=== PATIENT | male | born 1955 | race Caucasian/White ===

== ENCOUNTER 2017-06-26 14:29 | Outpatient (CLI) ==
[2012-11-08 21:51] VITALS: TEMP 99.2
[2017-06-27 10:28] VITALS: BMI 16.7
== END 2017-06-26 14:30 | disposition short-term general hospital (02) ==
LOC: AMBL 14:29
PROVIDERS: ATTEND Emergency Medicine
DX: R07.89 Other chest pain (principal)

== ENCOUNTER 2017-06-27 10:23 | Emergency (ER) ==
[2017-06-27 10:28] VITALS: BP 134/80; TEMP 98.6; BMI 16.7
--- NOTE | 2017-06-27 10:39 | ED.PDOC ---
General ED Provider: Dr. BUCK FLORES Chief Complaint: Respiratory Complaint Stated Complaint: cough, flu like symp Time Seen by Physician: 10:30 (seen at [facility] 1 day ago unhappy about meds given) Mode of Arrival: Walk-In Information Source: Patient Exam Limitations: No limitations Nursing and Triage Documentation Reviewed and Agree: Yes Reviewed sepsis parameters & appropriate labs ordered?: Yes (present naida RN at all times ) System Inflammatory Response Syndrome: Not Applicable Sepsis Protocol: For patient's 13 years and over: Temp is 96.8 and below OR 101 and greater Pulse >90 BPM Resp >20/minute Acutely Altered Mental Status Are patient's symptoms suggestive of a new infection, such as: -Pneumonia -Skin, Soft Tissue -Endocarditis -UTI -Bone, Joint Infection -Implantable Device -Acute Abdominal Infection -Wound Infection -Meningitis -Blood Stream Catheter Infection -Unknown System Inflammatory Response Syndrome: Not Applicable Respiratory Complaint Exam - Respiratory Complaint/Exam Symptoms Are: Resolved Timing: Intermittent Initial Severity: Mild Current Severity: Mild Location: Nose, Throat, Chest Character: Reports: Non-productive cough Aggravating: Reports: URI Associated Signs and Symptoms: Reports: URI, Nasal congestion Related History: Reports: Similar episode History of Healthcare-Acquired Pneumonia: No Related Surgical History: Reports: None Pulmonary Embolism Risk Factors: Smoking Tuberculosis Risk Factors: Reports: Chronic Resp. Faliure Status Asthmaticus Risk Factors: Reports: None Home Oxygen Use: No Recent Stress Test: No Recent Echo/LV Function: No Current Antibiotic Use: No Current Asthma Medication Use: No Respiratory Distress: None Inadequate Respiratory Effort: No Dysphagia Present: No Stridor Present: No JVD Present: No Accessory Muscle Use: No Retractions: Not Present Diminished Breath Sounds: No Sinus Tenderness: None Grunting Respirations: No Kussmaul Respirations: No Differential Diagnoses: Pneumonia, Bronchitis, URI, Lower Resp. Infection Review of Systems - Review Of Systems Constitutional: Reports: Malaise Eyes: Reports: No symptoms Ears, Nose, Mouth, Throat: Reports: No symptoms Respiratory: Reports: Cough Cardiac: Reports: No symptoms GI: Reports: No symptoms : Reports: No symptoms Musculoskeletal: Reports: No symptoms Skin: Reports: No symptoms Neurological: Reports: No symptoms Endocrine: Reports: No symptoms Hematologic/Lymphatic: Reports: No symptoms All Other Systems: Reviewed and Negative Past Medical History - Past Medical History Previously Healthy: No Endocrine: Reports: None Cardiovascular: Reports: Hypertension, CHF Respiratory: Reports: COPD Hematological: Reports: None Gastrointestinal: Reports: None Genitourinary: Reports: None Neuro/Psych: Reports: Migraine, Anxiety, Depression Musculoskeletal: Reports: Back Pain Cancer: Reports: None - Surgical History General Surgical History: Reports: Orthopedic (hx of broken wrist), Back Surgery (Back surgery X3 Hx of broken back), Unknown - Family History Family History: Reports: Unknown - Social History Smoking Status: Current every day smoker, Heavy tobacco smoker Hx Substance Use: No Alcohol Screening: None Physical Exam - Physical Exam Appearance: Well-appearing, No pain distress, Well-nourished Eyes: ANGELES, EOMI, Conjunctiva clear ENT: Ears normal, Nose normal, Oropharynx normal Respiratory: Airway patent, Breath sounds clear, Breath sounds equal, Respirations nonlabored, Rhonchi Cardiovascular: RRR, Pulses normal, No rub, No murmur GI/: Soft, Nontender, No masses, Bowel sounds normal, No Organomegaly Musculoskeletal: Normal strength, ROM intact, No edema, No calf tenderness Skin: Warm, Dry, Normal color Neurological: Sensation intact, Motor intact, Reflexes intact, Cranial nerves intact, Alert, Oriented Psychiatric: Affect appropriate, Mood appropriate Critical Care Note - Critical Care Note Total Time (mins): 0 Course - Course Vital Signs: Temp Pulse Resp BP Pulse Ox 06/27/17 10:24 98.6 F 108 H 16 134/80 98 Departure - Departure Time of Disposition: 10:40 Disposition: HOME SELF-CARE Discharge Problem: Acute viral syndrome Instructions: Viral Syndrome (ED) Condition: Good Pt referred to PMD for follow-up: Yes IPMP verified?: Yes Additional Instructions: Please call your Family Physician as soon as possible to schedule a follow-up appointment. Allergies/Adverse Reactions: Allergies No Known Drug Allergies Adverse Reaction (Verified 06/27/17 10:33) Home Medications: Ambulatory Orders Gabapentin 300 mg PO TID 05/03/16 Methocarbamol [Robaxin] 500 mg PO BID 05/03/16 Budesonide/Formoterol Fumarate [Symbicort 160-4.5 Mcg Inhaler] 1 puff IH BID Butalbital/Aspirin/Caffeine [Fiorinal 50-325-40 mg Capsule] 1 each PO Q6H PRN Cholecalciferol (Vitamin D3) [Vitamin D] 50,000 unit PO DIRECTED 06/27/17 Diclofenac Sodium 75 mg PO BID 06/27/17 Prednisone 20 mg PO DAILYWM 06/27/17
== END 2017-06-27 10:48 | disposition home or self-care (01) ==
LOC: ED 10:23
DX: B34.9 Viral infection, unspecified (principal); R53.83 Other fatigue; F17.210 Nicotine dependence, cigarettes, uncomplicated; R07.9 Chest pain, unspecified; R09.1 Pleurisy; M54.42 Lumbago with sciatica, left side
CPT/HCPCS: 36415; 82542; 99282

== ENCOUNTER 2017-06-27 10:51 | Outpatient (CLI) ==
[2012-11-08 21:51] VITALS: TEMP 99.2
[2017-06-27 10:28] VITALS: BMI 16.7
== END 2017-06-27 10:52 | disposition home or self-care (01) ==
LOC: LAB 10:51
DX: M54.42 Lumbago with sciatica, left side (principal)
CPT/HCPCS: 36415; 82542

== ENCOUNTER 2017-09-26 14:02 | Outpatient (CLI) ==
[2012-11-08 21:51] VITALS: TEMP 99.2
== END 2017-09-26 14:03 | disposition short-term general hospital (02) ==
LOC: AMBL 14:02
PROVIDERS: ATTEND Family Medicine
DX: R06.02 Shortness of breath (principal); R07.1 Chest pain on breathing; J44.9 Chronic obstructive pulmonary disease, unspecified

== ENCOUNTER 2017-10-05 15:23 | Outpatient (CLI) ==
[2012-11-08 21:51] VITALS: TEMP 99.2
--- NOTE | 2017-10-05 16:20 | DI ---
EXAM: Lumbar spine five views HISTORY: Low back pain with sciatica. FINDINGS: Compared to 01/02/2013. Redemonstration of interbody fusion hardware extending from L3-S1. Intervening disc spacers are present. Hardware is intact. Endplate breech by the spacer at least at the L2/L3 interspaces appears grossly stable. No acute fracture is obvious. Reversal lordosis is again noted centered above the stabilization hardware. Scoliosis convex to the left. Diffuse degene rative disc disease. Generalized demineralization. Sacroiliac joints are intact and appear similar to previously seen within least mild arthropathy. IMPRESSION: Diffuse degenerative changes of the spine with hardware of the lower spine and lumbosacra l junction. Findings appear similar to that previously seen. No acute fracture is obvious.
== END 2017-10-05 15:24 | disposition home or self-care (01) ==
LOC: RAD 15:23
PROVIDERS: ATTEND Nurse Practitioner
DX: M54.42 Lumbago with sciatica, left side (principal)

== ENCOUNTER 2017-11-04 11:00 | Outpatient (RCR) ==
[2012-11-08 21:51] VITALS: TEMP 99.2
--- NOTE | 2017-11-03 11:46 | RS.OPPTEV2 ---
Date of Note: 11/02/17 Visit #: 1 Date of Evaluation: 11/02/17 Payer Source: MEDICARE Treatment Diagnosis: chronic back pain History of Condition/Mechanism of Injury:: pt suffered an injury at work approx 13 years ago and has had 3 back surgeries since then with continued LPB. Prior Level of Function.....Patient was independent with: ADL's, Self Care, Ambulation/Mobility, Community Integration/Access Functional Limitations: Sleep, Self Care, Reaching, Pushing, Pulling, Lifting, Carrying, Sitting, Standing, Bending, Squatting, Ambulation, Community Access/ Integration Current Subjective/complaints:: pt states that he has had pain for 13 years and nothing helps. States he has had multiple surgeries, PT, and pain management and nothing helps. Pt reports he is having increased difficulty with amb and pain is constant. Treatment Side (optional): N/A *Precautions: n/a Medical History Medical History: COPD, Arthritis Surgical History: Lumbar Spine (2 back surgeries) Surgical History Comments:: wrist surgery Smoking Status: Current every day smoker Diagnostic Testing/Imaging:: lumbar spine x ray diffuse degenerative changes of the spine with hardware of the lower spine and lumbosacral junction. no acute fx is obvious. Hx Home Medications: tramadol, inhaler Patient's Goals: to decrease pain Pain Assessment - Pain Description Pain Location: lumbar spine Pain Description: Radiating, Sharp, Aching Current Pain Intensity: 9 Worst Pain Intensity: 10 Other Comments regarding Pain:: pt states pain never gets lower than a 7 Functional Outcome Measure Oswestry LBP: 35 (70%) - G Codes & Severity Modifier G Codes & Modifier: mobility: walking and moving around current CL. mobility: walking and moving around goal CK Source of G Code score: oswestry low back pain scale Observation - Observation Posture: Forward Head, Rounded Shoulders, Increased Thoracic Kyphosis, Decreased Lumbar Lordosis Handedness: Right Gait - Gait Pattern General Gait Pattern Observation: Crouched Gait Gait Comments: pt amb with significant flexed posture, and only able to amb very short distances. pt attempted gait with rwx and did improve posture, however pt states "It doesn't help" General Range of Motion: BUE WFL's. BLE WFL's Muscle Strength: BUE 4/5. BLE hip flex 4-/5, knee flex/ext 4-/5, ankle DF/PF 4- /5 - ROM Lumbar Flexion: Hand reach to Mid-Thighs Sidebending to Left: Reach to Mid-thigh Sidebending to Right: Reach to Mid-thigh Lumbar Spine ROM Limitations: Soft Tissue Tightness, Muscle Weakness, Pain Comments: pt unable to tolerate lumbar ext as well as any lumbar ROM c/o severe pain with any movements. - Special Tests MANJIT Test: Positive Left, Positive Right SLR Test: Positive Left, Positive Right Seated Dural Stretch Test: Positive Left, Positive Right Palpation Palpation Findings: Tenderness, Muscle Guarding Comments:: pt unable to tolerate palpation to lumbar spine with pt withdraws to light touch. Unable to assess for trigger points. Sensation - Sensation Right Upper Extremity: Impaired Left Upper Extremity: Impaired Right Lower Extremity: Impaired Left Lower Extremity: Impaired (pt reports he has numbness and tingling B LE and hands, pt with radiating pain into LE's) Balance - Sitting Balance Static Sitting Balance: Good Dynamic Sitting Balance: Good - Standing Balance Static Standing Balance: Fair Dynamic Standing Balance: Poor - Comments Balance Assessment Comments: pt only able to tolerate standing greater than 2-3 mins. pt with flexed posture, occasional scissoring, - Treatment Modality: Electrical Stim Unattended Parameters/Method Applied: IFC x 20 mins at 6, pt unable to tolerate increased intensity. pt states estim increases LBP Treatment Area: lumbar spine Patient Position: Left Sidelying - Heat/Cryotherapy Treatment: Hot Pack Comments:: lumbar spine Interventions - Exercise/Activities/Manual Therapy Exercises/Activities: pt instructed in single knee to chest, double knee to chest, pelvic tilt, pt only able to tolerate greater than 2-3 reps. Manual Therapy: n/a HOME EXERCISE PROGRAM: pt given written HEP including pelvic tilt, single knee to chest, double knee to chest - Charges Timed Code Treatment Minutes: 43 Total Treatment Time: 58 Procedures billed for this date of service:: eval med, estim unattended, hot pack EVALUATION COMPLEXITY LEVEL EVALUATION COMPLEXITY LEVEL: HISTORY: Medium (OA, COPD, low back injury), EXAM OF BODY SYSTEMS: Medium (pain, strength, balance, posture,), CLINICAL PRESENTATION: Medium (evolving), CLINICAL DECISION MAKING: Medium Assessment Assessment: pt presents with chronic low back pain with radiating pain into BLE' s. pt withdraws to light touch and unable to tolerate palpation. pt with decreased balance as well as decreased gait safety with decline in gait safety. Patient Education: Activity Modification, Education of Plan of Care Rehab Potential: Good Short Term Goals Goal #1: pt rate pain <8/10 lumbar spine Goal to be met by: 11/16/17 Goal #2: pt amb in dept w/wo assistive device with no LOB with improved posture Goal to be met by: 11/16/17 Goal #3: pt report increased ability to perform daily household duties Goal to be met by: 11/16/17 Mcfp Goals Goal #1: pt report decreased radiating pain, rate pain <6/10 Goal to be met by: 12/03/17 Goal #2: pt able to amb from car to PT dept with no rest periods with decreased pain Goal to be met by: 12/03/17 Goal #3: pt independent with HEP Goal to be met by: 12/03/17 Goal #4: pt able to amb/perform standing activities x 10 mins Goal to be met by: 12/03/17 Plan - Treatment to be Provided Procedures: Therapeutic Exercises, Therapeutic Activity, Manual Therapy, Massage , Patient Education Modalities: Electrical Stimulation, Ultrasound/Phonophoresis, Class IV Laser, Cryotherapy, Hot Packs, Mechanical Traction - Treatment Plan Frequency: 2 X week Duration: 4 weeks ORDER # VISITS AND/OR THROUGH DATE: 12/03/17 - Treatment Code (1) Lumbar pain with radiation down both legs Code(s): M54.5 - LOW BACK PAIN (2) General weakness Code(s): R53.1 - WEAKNESS (3) Impairment of balance Code(s): R26.89 - OTHER ABNORMALITIES OF GAIT AND MOBILITY
--- NOTE | 2017-11-04 12:11 | RS.OPPTDN ---
Subjective Date of Note: 11/04/17 Visit #: 2 Date of Evaluation: 11/02/17 Payer Source: MEDICARE Treatment Diagnosis: chronic back pain Current Subjective/complaints:: Patient says he is not feeling any better from treatment at [facility]. Reports taking Tramadol ~ 2 hours ago and just takes some of his L LE pain away. Rates pain 8/10 now. States often he has had pain for 13 years and "none of this" treatment/surgery helped. C/o LE pain that is unchanged from surgeries. Reports referring MD will refer him to a neurosurgeon in [place] once one agrees to take Mr. Olivier. *Precautions: n/a Pain Assessment - Pain Description Pain Location: 8/10 Pain Description: Radiating, Sharp, Throbbing Pain Description: "lightning bolt" - Treatment Modality: Electrical Stim Unattended Parameters/Method Applied: IFC @ 7 ma x 20 mins to lumbar paraspinals 4 small pads Patient Position: Right Sidelying - Heat/Cryotherapy Treatment: Hot Pack Interventions - Exercise/Activities/Manual Therapy Exercises/Activities: Patient receives gentle SKTC, short range piriformis, full fig 4, hamstring only nael x 2 reps each leg. Patient begins 4 reps of pillow squeezes and needs to stop due to having "lightning pain" down the L LE. Patient began education of diagnosis and body mechanics as well as POC. Total minutes of Exercise: 8 Manual Therapy: n/a HOME EXERCISE PROGRAM: pt given written HEP including pelvic tilt, single knee to chest, double knee to chest - Charges Timed Code Treatment Minutes: 15 Total Treatment Time: 35 Procedures billed for this date of service:: hp, estim (un), ex Assessment: Patient admits 8/10 pain with pain meds while laying sidelying in preps for treatment. He is unable to nael estim at low level as well as gentle stretches/exercise. He begins to have L radicular symptoms during activity as stated in exercise. He amb with forward flexed gait, shortened stride, and unable to nael light electrode placement during modalities upper back, but no hypersensitivity to the lower lumbar region. Patient Education: Education of diagnosis, Body/Joint mechanics, Home Exercise Program, Education of Plan of Care Patient demonstrates compliance with HEP?: No (Patient says hurts too bad) Short Term Goals Goal #1: pt rate pain <8/10 lumbar spine Goal to be met by: 11/16/17 Goal #2: pt amb in dept w/wo assistive device with no LOB with improved posture Goal to be met by: 11/16/17 Goal #3: pt report increased ability to perform daily household duties Goal to be met by: 11/16/17 Retirement Goals Goal #1: pt report decreased radiating pain, rate pain <6/10 Goal to be met by: 12/03/17 Goal #2: pt able to amb from car to PT dept with no rest periods with decreased pain Goal to be met by: 12/03/17 Goal #3: pt independent with HEP Goal to be met by: 12/03/17 Goal #4: pt able to amb/perform standing activities x 10 mins Goal to be met by: 12/03/17 Plan PLAN OF CARE EXPIRES ON:: 12/03/17 ORDER # VISITS AND/OR THROUGH DATE: 12/03/17 PLAN: Patient to attempt next week, then contact MD if no progress ensues.
--- NOTE | 2017-11-09 11:58 | RS.CXNS ---
Date of scheduled appointment: 11/09/17 Type: No Show
--- NOTE | 2017-11-11 15:30 | RS.CXNS ---
Date of scheduled appointment: 11/11/17 Type: No Show
--- NOTE | 2017-11-17 08:56 | RS.QUICKDC ---
Discharge from PT Date of Discharge: 11/17/17 Number of Visits: 2 Reason for Discharge: Patient attended eval and 1 Rx only, no showing further visits. Chart was held in order to give pt opportunity to reschedule. See eval and daily note for specific info.
== END 2017-11-27 23:59 ==
PROVIDERS: ATTEND Nurse Practitioner
DX: M54.5 Low back pain (principal); G89.29 Other chronic pain; R53.1 Weakness; R26.89 Other abnormalities of gait and mobility

== ENCOUNTER 2017-11-26 21:18 | Emergency (ER) | payer OTHER ==
[2017-11-26 21:24] VITALS: BP 112/76; TEMP 99.7; BMI 17.2
[2017-11-26] MEDS ORDERED: DILAUDID IM STA (21:29)
[2017-11-26] MEDS ORDERED: PHENERGAN 25 MG/ML VIAL IM STA (21:29)
[2017-11-26] MEDS ORDERED: TORADOL IM STA (21:29)
--- NOTE | 2017-11-26 21:32 | ED.PDOC ---
General ED Provider: Dr. DERRICK MILNER-ER Chief Complaint: Headache Stated Complaint: gita got a migraine--just like the ones i usually have Time Seen by Physician: 21:30 Mode of Arrival: Walk-In Information Source: Patient Exam Limitations: No limitations Primary Care Provider: ANIL SHELBY Nursing and Triage Documentation Reviewed and Agree: Yes Does patient meet sepsis criteria?: No System Inflammatory Response Syndrome: Not Applicable Sepsis Protocol: For patient's 13 years and over: Temp is 96.8 and below OR 101 and greater Pulse >90 BPM Resp >20/minute Acutely Altered Mental Status Are patient's symptoms suggestive of a new infection, such as: -Pneumonia -Skin, Soft Tissue -Endocarditis -UTI -Bone, Joint Infection -Implantable Device -Acute Abdominal Infection -Wound Infection -Meningitis -Blood Stream Catheter Infection -Unknown Neurological Complaint Exam - Headache Complaint/Exam Onset: Gradual Duration: several hours Symptoms Are: Still present Timing: Constant Episodes Lasting: Hours Worst Headache Ever: No Initial Severity: Mild Current Severity: Moderate Location: Diffuse Character: Reports: Dull, Throbbing, Typical headache, Migraine Aggravating: Reports: Bright lights Associated Signs and Symptoms: Reports: Nausea, Vomiting. Denies: Dizziness, Seizure Related History: Reports: Similar episode (just like usual migraine vaughn) Related Surgical History: Reports: None SDH Risk Factors: Reports: Male Temporal Arteritis Risk Factors: Reports: Normal Head CT Within Last 12 Months: Yes Fundoscopic Exam: Present: Normal Findings Papilledema Present: No Temporal Artery Tenderness: Present: None Sinus Tenderness: Present: None TMJ Tenderness: Present: None Glascow Coma Scale (see protocol): 15 Meningeal Signs Positive: No Pain on Passive Flexion-Positive Kernig's: No ROM Limited In: No Limitiations Focal Weakness: Present: None Focal Sensory Loss: Present: None Gait: Normal Nystagmus Present: No Gag Reflex Present: No [id number]: Normal Findings Romberg Test Positive: Yes Babinski Sign: Negative Right, Negative Left Heel to Toe Normal: Yes Differential Diagnoses: Migraine Review of Systems - Review Of Systems Constitutional: Reports: No symptoms Eyes: Reports: No symptoms Ears, Nose, Mouth, Throat: Reports: No symptoms Respiratory: Reports: No symptoms Cardiac: Reports: No symptoms GI: Reports: Nausea, Vomiting : Reports: No symptoms Musculoskeletal: Reports: No symptoms Skin: Reports: No symptoms Neurological: Reports: Headache Endocrine: Reports: No symptoms Hematologic/Lymphatic: Reports: No symptoms All Other Systems: Reviewed and Negative Past Medical History - Past Medical History Previously Healthy: No Endocrine: Reports: None Cardiovascular: Reports: Hypertension, CHF Respiratory: Reports: COPD Hematological: Reports: None Gastrointestinal: Reports: None Genitourinary: Reports: None Neuro/Psych: Reports: Migraine, Anxiety, Depression Musculoskeletal: Reports: Back Pain Cancer: Reports: None - Surgical History General Surgical History: Reports: Orthopedic (hx of broken wrist), Back Surgery (Back surgery X3 Hx of broken back), Unknown - Family History Family History: Reports: Unknown - Social History Smoking Status: Current every day smoker, Heavy tobacco smoker Hx Substance Use: No Alcohol Screening: None - Immunizations Tetanus Shot up to Date: Yes Physical Exam - Physical Exam Appearance: Well-appearing Pain Distress: Moderate Eyes: ANGELES, EOMI, Conjunctiva clear ENT: Ears normal, Nose normal, Oropharynx normal Neck: Supple Respiratory: Airway patent, Breath sounds clear, Breath sounds equal, Respirations nonlabored Cardiovascular: RRR, Pulses normal, No rub, No murmur GI/: Soft Musculoskeletal: Normal strength, ROM intact, No edema, No calf tenderness Skin: Warm, Dry, Normal color Neurological: Sensation intact, Motor intact, Reflexes intact, Cranial nerves intact, Alert, Oriented Psychiatric: Affect appropriate, Mood appropriate Re-Evaluation - Re-Evaluation Time of Re-Evaluation: 21:33 Status: Improved Vital Signs Stable: Yes Pain Level: 1 Appearance: NAD Lungs: Clear Skin: Warm and Dry Neuro: Alert and Oriented X3 CV: RRR Critical Care Note - Critical Care Note Total Time (mins): 0 Course - Course Orders, Labs, Meds: Orders Category Date Time Status Hydromorphone HCl [Dilaudid] MEDS 11/26/17 21:29 Discontinued 1 mg IM ONCE STA Ketorolac Tromethamine [Toradol] MEDS 11/26/17 21:29 Discontinued 60 mg IM ONCE STA Promethazine HCl [Phenergan 25 mg/ml Vial] MEDS 11/26/17 21:29 Discontinued 25 mg IM ONCE STA Medications Discontinued Medications Generic Name Dose Route Start Last Admin Trade Name Freq PRN Reason Stop Dose Admin Hydromorphone HCl 1 mg 11/26/17 21:29 11/26/17 21:44 Dilaudid IM 11/26/17 21:30 1 mg ONCE STA Administration Ketorolac Tromethamine 60 mg 11/26/17 21:29 11/26/17 21:42 Toradol IM 11/26/17 21:30 60 mg ONCE STA Administration Promethazine HCl 25 mg 11/26/17 21:29 11/26/17 21:43 Phenergan 25 Mg/Ml Vial IM 11/26/17 21:30 25 mg ONCE STA Administration Vital Signs: Temp Pulse Resp BP Pulse Ox 11/26/17 21:19 99.7 F H 110 H 20 112/76 96 Departure - Departure Time of Disposition: 21:33 Disposition: HOME SELF-CARE Discharge Problem: Migraine headache Qualifiers: Migraine type: without aura Status migrainosus presence: without status migrainosus Intractability: not intractable Qualified Code(s): G43.009 - Migraine without aura, not intractable, without status migrainosus Instructions: Migraine Headache (ED) Condition: Good Pt referred to PMD for follow-up: No IPMP verified?: No Additional Instructions: f/u with pcp Allergies/Adverse Reactions: Allergies No Known Drug Allergies Adverse Reaction (Verified 11/26/17 21:26) Home Medications: Ambulatory Orders Gabapentin 300 mg PO TID 05/03/16 Budesonide/Formoterol Fumarate [Symbicort 160-4.5 Mcg Inhaler] 1 puff IH BID Acetaminophen with Codeine [Tylenol #3 Tab] 1 tab PO Q4-6H PRN 11/26/17 Disposition Discussed With: Patient, Family
== END 2017-11-26 22:10 | disposition home or self-care (01) ==
LOC: ED 21:18
DX: G43.009 Migraine without aura, not intractable, without status migrainosus (principal); F17.210 Nicotine dependence, cigarettes, uncomplicated
CPT/HCPCS: 96372; 99282

== ENCOUNTER 2017-12-07 11:13 | Outpatient (CLI) | payer OTHER ==
[2012-11-08 21:51] VITALS: TEMP 99.2
== END 2017-12-07 11:27 | disposition short-term general hospital (02) ==
LOC: AMBL 11:13
PROVIDERS: ATTEND Emergency Medicine
DX: I63.9 Cerebral infarction, unspecified (principal)

== ENCOUNTER 2018-03-11 11:14 | Outpatient (CLI) | payer OTHER ==
[2012-11-08 21:51] VITALS: TEMP 99.2
== END 2018-03-11 11:15 | disposition home or self-care (01) ==
LOC: LAB 11:14
PROVIDERS: ATTEND Nurse Practitioner
DX: E53.8 Deficiency of other specified B group vitamins (principal); E55.9 Vitamin D deficiency, unspecified; I63.9 Cerebral infarction, unspecified; M54.9 Dorsalgia, unspecified
CPT/HCPCS: 36415; 80053; 80306; 82306; 82607; 85025

== ENCOUNTER 2018-03-28 13:00 | Outpatient (RCR) ==
[2012-11-08 21:51] VITALS: TEMP 99.2
--- NOTE | 2018-03-09 16:05 | RS.OTEVAL ---
Subjective Date of Note: 03/09/18 Visit #: 1 Date of Evaluation: 03/09/18 Payer Source: MEDICARE Surgery Performed?: No Treatment Diagnosis: CVA -Left middle Cerebral A. [phone], [phone] Treatment Side (optional): N/A *Precautions: n/a Prior Level of Function.....Patient was independent with: ADL's, Self Care, Work /Vocation, Caregiving, Ambulation/Mobility, Community Integration/Access History of Condition/Mechanism of Injury: Pt had a CVA at home 3 months ago. Pt went to [facility]. Pt reports he has not made any improvements. Level of Function: Pt is able to walk with a hemiwalker with CGA and belt. Pt becomes tired. Pt is independent with dressing. Pt is moderate assistance for bathing. Pt is moderate assistanc for shaving. Functional Limitations: Sleep, Self Care, ADL's, Reaching, Pushing, Pulling, Lifting, Carrying, Standing, Bending, Squatting, Community Access/Integration Current Complaints/Gains: Pt reports his therapy at the group home has not helped him much. Medical History Medical History: Hypertension, CVA/TIA, COPD, Arthritis Medical History Comments:: CVA, HTN, COPD, Fell and fractured his back and has hardware in his back. Right radial fracture with surgery of pins and a plate. Pt fractured his Left wrist as well. Surgical History: Lumbar Spine (2 back surgeries) Surgical History Comments:: wrist surgery Smoking Status: Current every day smoker Diagnostic Testing/Imaging:: lumbar spine x ray diffuse degenerative changes of the spine with hardware of the lower spine and lumbosacral junction. no acute fx is obvious. Hx Home Medications: tramadol, inhaler Patient's Goals: To be able to go fishing and feed himself with the RUE. Pain Assessment - Pain Description Pain Description: Burning, Tightness, Radiating, Sharp, Throbbing, Aching Pain Location: Back, Right shoulder Pain Description: sharp pain Current Pain Intensity: 8 Worst Pain Intensity: 10 Functional Outcome Measures UE Functional Index: 93 - G Codes & Severity Modifier G Codes: Carry, moving, and handling current is CM at 93% impaired. Goal is CI. Source of G Code score: Carry, moving, and handling. Observation - Observation Posture: Forward Head Handedness: Right Additional Comments: Pt is very limited in functional use of the RUE hand and arm due to tone, weakness, and limited coordination. Shoulder ROM: Left WFL's Shoulder Muscle Strength: Left WFL's - Right Shoulder ROM Right Shoulder Flexion: 20 Right Shoulder Extension: 60 Right Shoulder Abduction: 20 (Pt has some mild subluxation) Right Shoulder Internal Rotation: 20 Right Shoulder External Rotation: 0 Right Shoulder ROM Limitations: Soft Tissue Tightness, Muscle Weakness, Muscle Tone, Pain - Left Shoulder Strength Left Shoulder Flexion: 4+ Good + Left Shoulder Extension: 4+ Good + Left Shoulder Abduction: 4+ Good + Left Shoulder Adduction: 4+ Good + Left Shoulder External Rotation: 4+ Good + Left Shoulder Internal Rotation: 4+ Good + - Right Shoulder Strength Right Shoulder Flexion: 2+ Poor+ Right Shoulder Extension: 4- Good- Right Shoulder Abduction: 3- Fair- Right Shoulder External Rotation: 2 Poor Right Shoulder Internal Rotation: 2 Poor - Right Elbow ROM Right Elbow Extension: 147 Right Elbow Flexion: 147 Right Elbow Supination: 45 Right Elbow Pronation: 30 Right Elbow ROM Limitations: Soft Tissue Tightness, Muscle Weakness, Pain - Left Elbow Strength Left Elbow Extension: 4+ Good + Left Elbow Flexion: 4+ Good + Left Forearm Pronation: 4+ Good + Left Forearm Supination: 4+ Good + - Right Elbow Strength Right Elbow Extension: 4 Good Right Elbow Flexion: 4 Good Right Forearm Pronation: 3- Fair- Right Forearm Supination: 3- Fair- Sensation Right Upper Extremity: Intact/Normal Left Upper Extremity: Intact/Normal Sensation Description: Within Normal Limits Interventions - Exercise/Activities Exercise/Activities/Manual Therapy: Shoulder shrugs, reaching with RUE, Shoulder and clock exercises, reaching across midline. - Objective Findings Objective Findings:: Pt has weakness of RUE shoulder and impaired coordination of the RUE. Pt had limited use of the RUE due to his RUE wrist and and hand. Pt has tone of the right wrist/ hand and wrist extension. - Charges Timed Code Treatment Minutes: 60 Total Treatment Time: 60 Procedures billed for this date of service:: OT evaluation, EX EVALUATION COMPLEXITY LEVEL: HISTORY: Medium, EXAM OF BODY SYSTEMS: Medium, CLINICAL DECISION MAKING: Medium Assessment Assessment: Pt has RUE weakness, impaired coordination, increased tone of the Right wrist, hand. Pt is not able to write with a pen with the RUE due to impaired coordination. Pt is able to dress himself. Patient Education: Education of diagnosis, Body/Joint mechanics, Home Exercise Program, Education of Plan of Care Rehab Potential: Good Problems/Comments: Cannot do buttons, Pt cannot comb his hair, pt needs assistance with a bath, pt needs assistance with ambulation, Pt cannot hold a pen with the RUE nor write his name. Short Term Goals Goal #1: Pt to increase RUE wrist extension to 50 deg. Goal to be met by: 03/23/18 Goal #2: to increase coordination of RUE pincer grasp to pickle solution maker a clemens & put in jar Goal to be met by: 03/23/18 Goal #3: to increase RUE shoulder strengthening to 4-/5. Goal to be met by: 03/23/18 Goal #4: Pt to increase table assembler strength to 25#. Goal to be met by: 03/23/18 White Washer Goals Goal #1: Pt to increase RUE wrist extension to 65 deg. Goal to be met by: 04/20/18 Goal #2: to increase fine motor pincer grasp to complete green clothespin x 20 RUE Goal to be met by: 04/20/18 Goal #3: to increase RUE shoulder strengthening to 4+/5. Goal to be met by: 04/20/18 Goal #4: Pt to increase table assembler strength to 55#. Goal to be met by: 04/20/18 Plan - Treatment to be provided Procedures: Therapeutic Exercises, Therapeutic Activity, Neuromuscular Rehab, Manual Therapy, Patient Education Modalities: Electrical Stimulation, Ultrasound/Phonophoresis, Cryotherapy, Hot Packs - Treatment Plan Frequency: 2-3X /week Duration: 6 weeks ORDER # VISITS AND/OR THROUGH DATE: 04/20/18 - Treatment Code (1) Pain in right shoulder Code(s): M25.511 - PAIN IN RIGHT SHOULDER Comments: M25.511 RUE shoulder pain (2) Subluxation of right shoulder joint Code(s): S43.001A - UNSPECIFIED SUBLUXATION OF RIGHT SHOULDER JOINT, INIT ENCNTR Comments: S43.0 Shoulder subluxation (3) Pain in right wrist Code(s): M25.531 - PAIN IN RIGHT WRIST Comments: M25.5 Right wrist pain (4) Muscle weakness (generalized) Code(s): M62.81 - MUSCLE WEAKNESS (GENERALIZED)
--- NOTE | 2018-03-09 16:08 | RS.OPPTEV2 ---
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 pt then spent 3 months in residential for rehab. Prior Level of Function.....Patient was independent with: ADL's, Self Care, Ambulation/Mobility, Community Integration/Access Functional Limitations: Self Care, ADL's, Reaching, Pushing, Pulling, Lifting, Carrying, Sitting, Standing, Bending, Squatting, Ambulation, Community Access/ Integration Current Subjective/complaints:: pt states his main concern is getting his R UE back as well as walking better. He states that he has pain in L lumbar area which began prior to CVA however is worse since CVA. Treatment Side (optional): Right *Precautions: n/a Medical History Medical History: Hypertension, CVA/TIA, COPD, Arthritis Surgical History: Lumbar Spine (2 back surgeries) Surgical History Comments:: wrist surgery Smoking Status: Former smoker Hx Home Medications: tylenol 3, ventolin, albuterol Patient's Goals: get use of RUE and be able to walk better. Pain Assessment - Pain Description Pain Location: L lumbar area Pain Description: Aching Current Pain Intensity: 8/10 Functional Outcome Measure Tinetti: 6 (80%) - G Codes & Severity Modifier G Codes & Modifier: mobility walking and moving around: current CM. mobility walking and moving around: goal CL Source of G Code score: tinetti score Observation - Observation Inspection: pt presents with subluxation to R shld. Posture: Forward Head, Rounded Shoulders, Increased Thoracic Kyphosis, Decreased Lumbar Lordosis Handedness: Right Gait - Gait Pattern General Gait Pattern Observation: Narrow Based Gait, Ataxic Gait, Crouched Gait , Decrease Stride Lngth (R), Decrease Stride Lngth (L), Lateral Trunk Lean Gait Comments: pt amb with hemiwalker 50ft with min to cga x 1 with assist with placement of hemiwalker. pt amb 50 ft and had to bring w/c to pt because he was exhausted. General Range of Motion: LUE and LLE WFL's. RUE PROM WFL's. RLE WFL's Muscle Strength: LUE and LLE 5/5. RUE shld subluxed flex 2-/5, elbow flex/ext 3 -/5, decreased emergency services dispatcher strength and finger ext. RLE hip flex 3+/5, knee flex/ext 3 -/5, ankle DF/PF 1/5 Palpation Palpation Findings: Tenderness, Muscle Guarding Comments:: tenderness and muscle guarding to L lumbar area Sensation - Sensation Right Upper Extremity: Intact/Normal Left Upper Extremity: Intact/Normal Right Lower Extremity: Intact/Normal Left Lower Extremity: Intact/Normal Balance - Sitting Balance Static Sitting Balance: Good Dynamic Sitting Balance: Fair - Standing Balance Static Standing Balance: Poor Dynamic Standing Balance: Poor - Comments Balance Assessment Comments: pt dyn stand balance poor. Tinetti balance score 6/ 28. Gait speed: 0.1 m/s with min assist. Interventions - Exercise/Activities/Manual Therapy Exercises/Activities: pt performed isometric hip add x 5, seated LAQ, hip flex x 5 reps with verbal cues. Received hamstring stretch BLE, lower trunk rotation stretch. Manual Therapy: n/a HOME EXERCISE PROGRAM: pt given written HEP including isometric hip add, seated hip flex, seated quad sets, hamstring stretches, lower trunk rotation stretch - Charges Timed Code Treatment Minutes: 48 Total Treatment Time: 54 Procedures billed for this date of service:: eval med EVALUATION COMPLEXITY LEVEL EVALUATION COMPLEXITY LEVEL: HISTORY: Medium (CVA, COPD,HTN, OA ), EXAM OF BODY SYSTEMS: Medium (balance, strength, posture, pain, coordination, endurance), CLINICAL PRESENTATION: Medium (evolving), CLINICAL DECISION MAKING: Medium Assessment Assessment: pt presents with decreased strength, balance, endurance, gait ability s/p CVA. Feel pt would benefit from skilled PT for therex for LE strengthening, balance as well as gait training. Patient Education: Home Exercise Program, Education of Plan of Care Rehab Potential: Good Short Term Goals Goal #1: pt RLE strength 3+ to 4-/5 Goal to be met by: 03/25/18 Goal #2: pt amb in dept w hemiwx with improved posture with CGA no LOB Goal to be met by: 03/25/18 Goal #3: Improve dyn stand balance as noted by tinetti score 28 Goal to be met by: 03/25/18 Goal #4: pt independent with initial HEP Goal to be met by: 03/25/18 Boy'S Adviser Goals Goal #1: pt with decreased risk of falls as noted by tinetti score >19/28 Goal to be met by: 04/15/18 Goal #2: pt able to amb from car to PT dept with hemiwalker with SBA with no LOB Goal to be met by: 04/15/18 Goal #3: pt report increased functional mobility in the home with no reports of fall Goal to be met by: 04/15/18 Goal #4: Gait speed 0.4m/s to be considered limited community ambulator. Goal to be met by: 04/15/18 Plan - Treatment to be Provided Procedures: Therapeutic Exercises, Therapeutic Activity, Gait Training, Neuromuscular Rehab, Patient Education Modalities: Cryotherapy, Hot Packs - Treatment Plan Frequency: 2-3x a week Duration: 6 weeks ORDER # VISITS AND/OR THROUGH DATE: 04/15/18 - Treatment Code (1) Hemiplegia, dominant side S/P CVA (cerebrovascular accident) Code(s): I69.359 - HEMIPLGA FOLLOWING CEREBRAL INFARCTION AFFECTING UNSP SIDE (2) Cerebral infarction due to thrombosis of left middle cerebral artery Code(s): I63.312 - CEREBRAL INFRC DUE TO THOMBOS OF LEFT MIDDLE CEREBRAL ARTERY (3) Foot drop, right Code(s): M21.371 - FOOT DROP, RIGHT FOOT (4) Impairment of balance Code(s): R26.89 - OTHER ABNORMALITIES OF GAIT AND MOBILITY
--- NOTE | 2018-03-14 10:22 | RS.OPPTDN ---
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 *Precautions: n/a Pain Assessment - Pain Description Pain Location: back pain Pain Description: Aching, Chronic Pain Description: aching before and after CVA Current Pain Intensity: not rated Interventions - Exercise/Activities/Manual Therapy Exercises/Activities: 45 mins. total of R LE stetches /strengthening in all directions,including ankle DF/PF with facilitation ,heelslides,SAQ,SLR,hip abd/ adduction,bridging.Gait training withn tristan-walker and CGA of 1,then added 1.5 # to R LE to reduce ataxia. Total minutes of Exercise: 45 Manual Therapy: n/a Total minutes of Manual Therapy: 0 HOME EXERCISE PROGRAM: pt given written HEP including isometric hip add, seated hip flex, seated quad sets, hamstring stretches, lower trunk rotation stretch - Charges Timed Code Treatment Minutes: 45 Total Treatment Time: 45 Procedures billed for this date of service:: ex 2,gait 1 Assessment: Patient has improved R ankle DF with facilitation to the R anterior tib and by quick stretch into PF.The R hip weakness is noted when doing heelslides or bridging,the R hip externally rotates.His gait is ataxic ,and is improved by adding light resistance at the ankle ,and the base of support improves.He is motivated ,but also impulsive at times,has fair safety awareness. Patient Education: Education of diagnosis, Body/Joint mechanics, Home Exercise Program, Home Safety, Activity Modification, Education of Plan of Care Patient demonstrates compliance with HEP?: Yes Short Term Goals Goal #1: pt RLE strength 3+ to 4-/5 Goal to be met by: 03/25/18 Progress towards Goal:: Progressing Goal #2: pt amb in dept w hemiwx with improved posture with CGA no LOB Goal to be met by: 03/25/18 Progress towards Goal:: Progressing Goal #3: Improve dyn stand balance as noted by tinetti score 15/28 Goal to be met by: 03/25/18 Goal #4: pt independent with initial HEP Goal to be met by: 03/25/18 Dry Heat Room Attendant Goals Goal #1: pt with decreased risk of falls as noted by tinetti score >19/28 Goal to be met by: 04/15/18 Goal #2: pt able to amb from car to PT dept with hemiwalker with SBA with no LOB Goal to be met by: 04/15/18 Goal #3: pt report increased functional mobility in the home with no reports of fall Goal to be met by: 04/15/18 Goal #4: Gait speed 0.4m/s to be considered limited community ambulator. Goal to be met by: 04/15/18 Plan Dates of Snf Goals: 04/15/18 Expiration date of current Insurance Approval:: NA PLAN: Continue PT to increased the R LE/trunk strength ,for safer ADL's.
--- NOTE | 2018-03-14 14:24 | RS.OTDNOTE ---
Subjective Date of Note: 03/14/18 Visit #: 2 Number of visits approved by Insurance: N/A Date of Evaluation: 03/09/18 Payer Source: MEDICARE Treatment Diagnosis: CVA -Left middle Cerebral A. [phone], [phone] *Precautions: n/a Current Complaints/Gains: Pt states increased UE/cervical pain. states he slept wrong and has had increased pain x 3 days. States compliance with shoulder flexion only supine in bed with RAMONA-A/AROM. Pain Assessment - Pain Description Pain Description: Burning, Tightness, Radiating, Sharp, Throbbing, Aching Pain Location: Back, Right shoulder Pain Description: sharp pain Current Pain Intensity: 3 Worst Pain Intensity: 8 Other comments regarding pain:: Increased c/o pain with cervical AROM Modalities - Treatment Modality: Ultrasound Parameters/Method Applied: 1.5w/cm2 to (R) traps Patient Position: Sitting - Hot Pack/Cryotherapy Treatment: Hot Pack, Cryotherapy Interventions - Exercise/Activities Exercise/Activities/Manual Therapy: Pt ed and performed shoulder shrugs/ retraction, AROM reaching/grasping with RUE, shoulder and clock exercises, reaching across midline/PNF patterns, table-top AROM, weight bearing of UE, and tolerated manual therapy/trigger point therapy to forearms and shoulder/traps. Pt performed AROM/stretching of cervial side to side and chin tucks during US tx. Restor also performed x 5 mins with pt ed for home use. - Other Treatment/Services Treatment Details: Pt ed for HEP and forced use activities along with proper UE positioning - Objective Findings Objective Findings:: Pt has weakness of RUE shoulder and impaired coordination of the RUE. Pt had limited use of the RUE due to his RUE wrist and and hand. Pt has tone of the right wrist/ hand and wrist extension. - Charges Timed Code Treatment Minutes: US HP MT NMR Total Treatment Time: 55 Procedures billed for this date of service:: 62 Assessment Patient Education: Education of diagnosis, Body/Joint mechanics, Home Exercise Program, Home Safety, Activity Modification, Education of Plan of Care Patient demonstrates compliance with HEP?: Yes Short Term Goals Goal #1: Pt to increase RUE wrist extension to 50 deg. Goal to be met by: 03/23/18 Progress towards goal: Progressing Goal #2: to increase coordination of RUE pincer grasp to picker tender a clemens & put in jar Goal to be met by: 03/23/18 Progress towards goal: Progressing Goal #3: to increase RUE shoulder strengthening to 4-/5. Goal to be met by: 03/23/18 Progress towards goal: Progressing Goal #4: Pt to increase automotive parts salesperson strength to 25#. Goal to be met by: 03/23/18 Progress towards goal: Progressing Tetryl Boiling Tub Operator Goals Goal #1: Pt to increase RUE wrist extension to 65 deg. Goal to be met by: 04/20/18 Progress towards goal: Progressing Goal #2: to increase fine motor pincer grasp to complete green clothespin x 20 RUE Goal to be met by: 04/20/18 Progress towards goal: Progressing Goal #3: to increase RUE shoulder strengthening to 4+/5. Goal to be met by: 04/20/18 Progress towards goal: Progressing Goal #4: Pt to increase automotive parts salesperson strength to 55#. Goal to be met by: 04/20/18 Progress towards goal: Progressing Plan Dates of Alf Goals: 04/20/18 Expiration date of current Insurance Approval:: NA PLAN: Cont per POC to max UE fx with decreased c/o pain
--- NOTE | 2018-03-17 14:32 | RS.OPPTDN ---
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 *Precautions: n/a Interventions - Exercise/Activities/Manual Therapy Exercises/Activities: 50 mins. total ,beginning on leg press using both LE's @ 90 # ,08/07,then 15# and 30 # for R LE only,2/ each.Isometric hip abd/ adduction with small therapy ball.Gait training with tristan-walker and gait belt, using 3 point gait technique. Total minutes of Exercise: 50 Manual Therapy: n/a Total minutes of Manual Therapy: 0 HOME EXERCISE PROGRAM: pt given written HEP including isometric hip add, seated hip flex, seated quad sets, hamstring stretches, lower trunk rotation stretch - Charges Timed Code Treatment Minutes: 50 Total Treatment Time: 55 Procedures billed for this date of service:: ex,gt,ther. act. Assessment: Patient requires several verbal cues for proper step sequencing when using the tristan-walker initially ,but improved as the gait session progressed.He has ataxia in the R LE,and the coordination improves with light weight on the R ankle.He is high risk for falls if unassisted ,is impulsive at times ,decreased safety awareness for stand to sit. Patient Education: Education of diagnosis, Body/Joint mechanics, Home Exercise Program, Home Safety, Activity Modification, Education of Plan of Care Patient demonstrates compliance with HEP?: Yes Short Term Goals Goal #1: pt RLE strength 3+ to 4-/5 Goal to be met by: 03/25/18 Progress towards Goal:: Progressing Goal #2: pt amb in dept w hemiwx with improved posture with CGA no LOB Goal to be met by: 03/25/18 Progress towards Goal:: No Change Goal #3: Improve dyn stand balance as noted by tinetti score 15/28 Goal to be met by: 03/25/18 Goal #4: pt independent with initial HEP Goal to be met by: 03/25/18 Longterm Goals Goal #1: pt with decreased risk of falls as noted by tinetti score >19/28 Goal to be met by: 04/15/18 Goal #2: pt able to amb from car to PT dept with hemiwalker with SBA with no LOB Goal to be met by: 04/15/18 Goal #3: pt report increased functional mobility in the home with no reports of fall Goal to be met by: 04/15/18 (fell yesterday) Goal #4: Gait speed 0.4m/s to be considered limited community ambulator. Goal to be met by: 04/15/18 Plan Dates of Full Stack Engineer Goals: 04/15/18 Expiration date of current Insurance Approval:: NA PLAN: Continue PT to increase strength in the R LE,improve coordination for safer mobility.
--- NOTE | 2018-03-17 14:55 | RS.OTCNOTE ---
OT Case Note Date of Note: 03/17/18 Title: Pt ed Note: Pt and CG states pt fell at home the previous night. Pt with increased c/ o pain/swelling in digits 4-5 noted. Pt ed on ER visit, contacting MD, ice pack application and positioning of UE. OTR contacted per phone. Pt on hold this date and rescheduled to tomorrow, 03/18. Number of visits approved by Insurance: NA Expiration date of current Insurance Approval:: NA
--- NOTE | 2018-03-22 08:32 | RS.OTDNOTE ---
Subjective Date of Note: 03/18/18 Visit #: 3 Number of visits approved by Insurance: NA Date of Evaluation: 03/09/18 Payer Source: MEDICARE Treatment Diagnosis: CVA -Left middle Cerebral A. [phone], [phone] *Precautions: n/a Current Complaints/Gains: Pt voices and demo increased cervical AROM and has decreased c/o pain. States he has been trying to utilize his (R) hand more during fx tasks. States supine A/AROM in the mornings and evenings. Pain Assessment - Pain Description Pain Description: Burning, Tightness, Radiating, Sharp, Throbbing, Aching Pain Location: Back, Right shoulder Pain Description: sharp pain Current Pain Intensity: 3 Modalities - Treatment Modality: Electrical Stim Attended Parameters/Method Applied: Dorsal forearm for wrist/digit extension. Mirrow therapy performed along with therapist ABDIAS CUEVAS. Patient Position: Sitting - Hot Pack/Cryotherapy Treatment: Hot Pack, Cryotherapy Interventions - Exercise/Activities Exercise/Activities/Manual Therapy: Pt ed and performed shoulder shrugs/ retraction, AROM reaching/grasping with RUE, shoulder and clock exercises, reaching across midline/PNF patterns, table-top AROM, weight bearing of UE, and tolerated manual therapy/trigger point therapy to forearms and shoulder/traps. Pt performed AROM/cervical AROM. Mirror therapy, and use of B UE lacy ed performed. Restor also performed x 5 mins with pt ed for home use. - Objective Findings Objective Findings:: Pt has weakness of RUE shoulder and impaired coordination of the RUE. Pt had limited use of the RUE due to his RUE wrist and and hand. Pt has tone of the right wrist/ hand and wrist extension. - Charges Timed Code Treatment Minutes: 52 Total Treatment Time: 65 Procedures billed for this date of service:: CP ESTIM MT NMR2 Assessment Patient Education: Education of diagnosis, Body/Joint mechanics, Home Exercise Program, Home Safety, Activity Modification, Education of Plan of Care Patient demonstrates compliance with HEP?: Yes Short Term Goals Goal #1: Pt to increase RUE wrist extension to 50 deg. Goal to be met by: 03/23/18 Progress towards goal: Progressing Goal #2: to increase coordination of RUE pincer grasp to cherry picker operator a clemens & put in jar Goal to be met by: 03/23/18 Progress towards goal: Progressing Goal #3: to increase RUE shoulder strengthening to 4-/5. Goal to be met by: 03/23/18 Progress towards goal: Progressing Goal #4: Pt to increase hydrogen treater strength to 25#. Goal to be met by: 03/23/18 Progress towards goal: Progressing Penitentiary Goals Goal #1: Pt to increase RUE wrist extension to 65 deg. Goal to be met by: 04/20/18 Progress towards goal: Progressing Goal #2: to increase fine motor pincer grasp to complete green clothespin x 20 RUE Goal to be met by: 04/20/18 Progress towards goal: Progressing Goal #3: to increase RUE shoulder strengthening to 4+/5. Goal to be met by: 04/20/18 Progress towards goal: Progressing Goal #4: Pt to increase hydrogen treater strength to 55#. Goal to be met by: 04/20/18 Progress towards goal: Progressing Plan Dates of Penitentiary Goals: 04/20/18 Expiration date of current Insurance Approval:: NA PLAN: Cont per POC to max fx (R) UE use with decreased c/o pain
--- NOTE | 2018-03-22 13:18 | RS.CXNS ---
Date of scheduled appointment: 03/22/18 Type: Cancel Reason for Cancel/NS: Patient sick today,has a fever.
--- NOTE | 2018-03-24 13:10 | RS.CXNS ---
Date of scheduled appointment: 03/24/18 Type: Cancel (Patient still sick.)
--- NOTE | 2018-03-28 14:26 | RS.OPPTDN ---
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 *Precautions: n/a Pain Assessment - Pain Description Pain Location: R LE Pain Description: Tightness, Aching, Chronic Current Pain Intensity: 3 Other Comments regarding Pain:: "feels like my muscles draw up " Interventions - Exercise/Activities/Manual Therapy Exercises/Activities: 50 mins. total ,beginning on leg press using both LE's @ 90 # ,08/07,then 15# and 30 # for R LE only,07/10 each.Isometric hip abd/ adduction with small therapy ball.Gait training with tristan-walker and gait belt, using 3 point gait technique.Mujltiple reps. of assisted LAQ's with focus on eccentric control. Total minutes of Exercise: 50 Manual Therapy: n/a Total minutes of Manual Therapy: 0 HOME EXERCISE PROGRAM: pt given written HEP including isometric hip add, seated hip flex, seated quad sets, hamstring stretches, lower trunk rotation stretch - Charges Timed Code Treatment Minutes: 50 Total Treatment Time: 50 Procedures billed for this date of service:: ex 2,gait Assessment: Patient has improved R ankle dorsiflexion,but knows to wear R AFO for stability when standing.The R LE has less ataxia today whle ambulating.He also has improved R knee extension while on leg press. Patient Education: Education of diagnosis, Body/Joint mechanics, Home Exercise Program, Home Safety, Activity Modification, Education of Plan of Care Patient demonstrates compliance with HEP?: Yes Short Term Goals Goal #1: pt RLE strength 3+ to 4-/5 Goal to be met by: 03/25/18 Progress towards Goal:: Progressing Goal #2: pt amb in dept w hemiwx with improved posture with CGA no LOB Goal to be met by: 03/25/18 Progress towards Goal:: Progressing Goal #3: Improve dyn stand balance as noted by tinetti score Goal to be met by: 03/25/18 Goal #4: pt independent with initial HEP Goal to be met by: 03/25/18 Progress towards Goal:: Progressing Ships Equipment Engineer Goals Goal #1: pt with decreased risk of falls as noted by tinetti score >19/28 Goal to be met by: 04/15/18 Goal #2: pt able to amb from car to PT dept with hemiwalker with SBA with no LOB Goal to be met by: 04/15/18 Goal #3: pt report increased functional mobility in the home with no reports of fall Goal to be met by: 04/15/18 (fell yesterday) Goal #4: Gait speed 0.4m/s to be considered limited community ambulator. Goal to be met by: 04/15/18 Plan Dates of Snf Goals: 04/15/18 Expiration date of current Insurance Approval:: NA PLAN: Cont. PT to increase R LE strength,decrease tone for safer ADL's.
--- NOTE | 2018-03-28 15:29 | RS.OTDNOTE ---
Subjective Date of Note: 03/28/18 Visit #: 4 Number of visits approved by Insurance: NA Date of Evaluation: 03/09/18 Payer Source: MEDICARE Treatment Diagnosis: CVA -Left middle Cerebral A. [phone], [phone] *Precautions: n/a Current Complaints/Gains: Pain continues in cervicl, 4th digit, and bicep head of UE. Pt states he continues performing HEP and is only in bed for sleep or rests despite what his DIL states. Pain Assessment - Pain Description Pain Description: Burning, Tightness, Radiating, Sharp, Throbbing, Aching Pain Location: Back, Right shoulder Pain Description: sharp pain Modalities - Hot Pack/Cryotherapy Treatment: Hot Pack Comments:: HP applied while in supine positon with cervical AROM performed and MT to trigger points in scapula and UE. Interventions - Exercise/Activities Exercise/Activities/Manual Therapy: Pt ed and performed shoulder shrugs/ retraction, AROM reaching/grasping with RUE, shoulder and clock exercises, reaching across midline/PNF patterns, table-top AROM, weight bearing of UE, and tolerated manual therapy/trigger point therapy to forearms and shoulder/traps. Pt in supine postion for hold release, AROM, PROM, NMR/PNF patterns and isometric ex's. Pt performed AROM/cervical AROM. Forced use /mirror therapy, and use of B UE lacy ed performed. KWIGILLINGOK act/cones performed and nut/bolt set attempted but unable to perform. Restor also performed x 5 mins with pt ed for home use. HOME EXERCISE PROGRAM: Forced use activities and WB/WS activities. - Objective Findings Objective Findings:: Pt has weakness of RUE shoulder and impaired coordination of the RUE. Pt had limited use of the RUE due to his RUE wrist and and hand. Pt has tone of the right wrist/ hand and wrist extension. - Charges Timed Code Treatment Minutes: 59 Total Treatment Time: 59 Procedures billed for this date of service:: NMR3 act Assessment Patient Education: Education of diagnosis, Body/Joint mechanics, Home Exercise Program, Home Safety, Activity Modification, Education of Plan of Care Patient demonstrates compliance with HEP?: Yes Short Term Goals Goal #1: Pt to increase RUE wrist extension to 50 deg. Goal to be met by: 03/23/18 Progress towards goal: Partially Met Comments: following quick stretch and positioned in GE plane Goal #2: to increase coordination of RUE pincer grasp to pickup driver a clemens & put in jar Goal to be met by: 03/23/18 Progress towards goal: Progressing Goal #3: to increase RUE shoulder strengthening to 4-/5. Goal to be met by: 03/23/18 Progress towards goal: Progressing Goal #4: Pt to increase environmental assistant strength to 25#. Goal to be met by: 03/23/18 Progress towards goal: Progressing Prison Goals Goal #1: Pt to increase RUE wrist extension to 65 deg. Goal to be met by: 04/20/18 Progress towards goal: Progressing Goal #2: to increase fine motor pincer grasp to complete green clothespin x 20 RUE Goal to be met by: 04/20/18 Progress towards goal: Progressing Goal #3: to increase RUE shoulder strengthening to 4+/5. Goal to be met by: 04/20/18 Progress towards goal: Progressing Goal #4: Pt to increase environmental assistant strength to 55#. Goal to be met by: 04/20/18 Progress towards goal: Progressing Plan Dates of Criminal Researcher Goals: 04/20/18 Expiration date of current Insurance Approval:: NA PLAN: Cont per POC to max fx UE strength, AROM, and decrease c/o pain.
== END 2018-03-30 23:59 ==
PROVIDERS: ATTEND Clinical Nurse Specialist Adult Health
DX: I63.312 Cerebral infarction due to thrombosis of left middle cerebral artery (principal); R26.9 Unspecified abnormalities of gait and mobility; M21.371 Foot drop, right foot

== ENCOUNTER 2018-04-03 19:18 | Emergency (ER) | payer OTHER ==
--- NOTE | 2018-04-03 19:20 | ED.PDOC ---
General ED Provider: Dr. DERRICK MILNER-ER Chief Complaint: Sore Throat Stated Complaint: my throat is sore Time Seen by Physician: 19:19 Mode of Arrival: Walk-In Information Source: Patient, Family Exam Limitations: No limitations Nursing and Triage Documentation Reviewed and Agree: Yes Does patient meet sepsis criteria?: No System Inflammatory Response Syndrome: Not Applicable Sepsis Protocol: For patient's 13 years and over: Temp is 96.8 and below OR 101 and greater Pulse >90 BPM Resp >20/minute Acutely Altered Mental Status Are patient's symptoms suggestive of a new infection, such as: -Pneumonia -Skin, Soft Tissue -Endocarditis -UTI -Bone, Joint Infection -Implantable Device -Acute Abdominal Infection -Wound Infection -Meningitis -Blood Stream Catheter Infection -Unknown EENT Complaint Exam - Throat Complaint/Exam Onset/Duration: 24hrs Symptoms Are: Still present Timimg: Constant Initial Severity: Mild Current Severity: Mild Aggravating: Reports: Eating Alleviating: Reports: Antipyretics Associated Signs and Symptoms: Reports: Nasal congestion Uvula Midline: Yes Kimberly-tonsillar Fluctuence: No Scarlatinaform Rash Present: No Exanthem: Present: Pharynx Stridor Present: No Sinus Tenderness Present: No Tonsillar Hypertrophy Present: No Tonsillar Exudate Present: No Kimberly-tonsillar Swelling Present: No Adenopathy Present: No Splenomegaly Present: No Differential Diagnoses: Pharyngitis Review of Systems - Review Of Systems Constitutional: Reports: No symptoms Eyes: Reports: No symptoms Ears, Nose, Mouth, Throat: Reports: Throat pain, Throat swelling Respiratory: Reports: No symptoms Cardiac: Reports: No symptoms GI: Reports: No symptoms : Reports: No symptoms Musculoskeletal: Reports: No symptoms Skin: Reports: No symptoms Neurological: Reports: No symptoms Endocrine: Reports: No symptoms Hematologic/Lymphatic: Reports: No symptoms All Other Systems: Reviewed and Negative Past Medical History - Past Medical History Previously Healthy: No Endocrine: Reports: None Cardiovascular: Reports: Hypertension, CHF Respiratory: Reports: COPD Hematological: Reports: None Gastrointestinal: Reports: None Genitourinary: Reports: None Neuro/Psych: Reports: Migraine, Anxiety, Depression Musculoskeletal: Reports: Back Pain Cancer: Reports: None - Surgical History General Surgical History: Reports: Orthopedic (hx of broken wrist), Back Surgery (Back surgery X3 Hx of broken back), Unknown - Family History Family History: Reports: Unknown - Social History Smoking Status: Current every day smoker, Heavy tobacco smoker Hx Substance Use: No Alcohol Screening: None Physical Exam - Physical Exam Appearance: Well-appearing, No pain distress, Well-nourished Pain Distress: Mild Eyes: ANGELES, EOMI, Conjunctiva clear ENT: Ears normal, Nose normal, Oropharynx normal, Erythema, Exudate Neck: Supple Respiratory: Airway patent Cardiovascular: RRR GI/: Soft, Nontender, No masses, Bowel sounds normal, No Organomegaly Musculoskeletal: Normal strength Skin: Warm, Dry, Normal color Neurological: Sensation intact, Motor intact, Reflexes intact, Cranial nerves intact, Alert, Oriented Psychiatric: Affect appropriate, Mood appropriate Critical Care Note - Critical Care Note Total Time (mins): 0 Departure - Departure Time of Disposition: 19:20 Disposition: HOME SELF-CARE Discharge Problem: Sore throat symptom Instructions: Pharyngitis (ED) Condition: Good Pt referred to PMD for follow-up: Yes IPMP verified?: No Additional Instructions: amoxil, 250/5 1 tsp tid x 7 days---nystatin swish and swallow 5ccs swish and swallow qid x 7 [id number]/u withj pcp Allergies/Adverse Reactions: Allergies No Known Drug Allergies Adverse Reaction (Verified 11/26/17 21:26) Home Medications: Ambulatory Orders Gabapentin 300 mg PO TID 05/03/16 Budesonide/Formoterol Fumarate [Symbicort 160-4.5 Mcg Inhaler] 1 puff IH BID Acetaminophen with Codeine [Tylenol #3 Tab] 1 tab PO Q4-6H PRN 11/26/17 Disposition Discussed With: Patient, Family
[2018-04-03 19:28] VITALS: BP 125/83; TEMP 100.2; BMI 19.8
== END 2018-04-03 19:40 | disposition home or self-care (01) ==
LOC: ED 19:18
DX: J02.9 Acute pharyngitis, unspecified (principal); F17.210 Nicotine dependence, cigarettes, uncomplicated
CPT/HCPCS: 87651; 99283

== ENCOUNTER 2018-06-26 15:55 | Emergency (ER) | payer OTHER ==
[2018-06-26 15:56] VITALS: BMI 17.2
[2018-06-26 16:00] VITALS: BP 111/77; TEMP 98.8
[2018-06-26] MEDS ORDERED: ZOFRAN 4 MG/2 ML IM STA (16:05)
[2018-06-26] MEDS ORDERED: DILAUDID 1 MG/ML SYRINGE IM STA (16:05)
--- NOTE | 2018-06-26 16:37 | ED.PDOC ---
General ED Provider: Dr. DERRICK MILNER-ER Chief Complaint: Back Pain Stated Complaint: MY BACK IS ACTING UP Time Seen by Physician: 15:55 Mode of Arrival: Wheelchair Information Source: Patient Exam Limitations: No limitations Primary Care Provider: GERRY BAÑUELOS Nursing and Triage Documentation Reviewed and Agree: Yes Does patient meet sepsis criteria?: No System Inflammatory Response Syndrome: Not Applicable Sepsis Protocol: For patient's 13 years and over: Temp is 96.8 and below OR 101 and greater Pulse >90 BPM Resp >20/minute Acutely Altered Mental Status Are patient's symptoms suggestive of a new infection, such as: -Pneumonia -Skin, Soft Tissue -Endocarditis -UTI -Bone, Joint Infection -Implantable Device -Acute Abdominal Infection -Wound Infection -Meningitis -Blood Stream Catheter Infection -Unknown Musculoskeletal Complaint Exam - Back Pain Complaint/Exam Mechanism of Injury: Reports: No known trauma Onset/Duration: several days Symptoms Are: Still present Timing: Constant Initial Severity: Mild Current Severity: Moderate Location: Reports: Discrete Character: Reports: Dull, Aching, Spasmodic Aggravating: Reports: Movements, Lifting, Bending, Walking Associated Signs and Symptoms: Reports: Pain with weight bearing Related History: Reports: Previous back injury Focal Tenderness: Yes Paraspinal Muscle Tenderness: Yes Paraspinal Muscle Spasm: No Scoliosis: No Lordosis: No Kyphosis: No SLR Test: Right Negative, Left Negative Hip Motion Testing Pain: Right Negative, Left Negative Focal Weakness: Present: None Focal Sensory Loss: Present: None Gait: Present: Normal Differential Diagnoses: Fracture, Herniated Disk, Strain, Sprain Review of Systems - Review Of Systems Constitutional: Reports: No symptoms Eyes: Reports: No symptoms Ears, Nose, Mouth, Throat: Reports: No symptoms Respiratory: Reports: No symptoms Cardiac: Reports: No symptoms GI: Reports: No symptoms : Reports: No symptoms Musculoskeletal: Reports: Back pain Skin: Reports: No symptoms Neurological: Reports: No symptoms Endocrine: Reports: No symptoms Hematologic/Lymphatic: Reports: No symptoms All Other Systems: Reviewed and Negative Past Medical History - Past Medical History Previously Healthy: No Endocrine: Reports: None Cardiovascular: Reports: Hypertension, CHF Respiratory: Reports: COPD Hematological: Reports: None Gastrointestinal: Reports: None Genitourinary: Reports: None Neuro/Psych: Reports: Migraine, Anxiety, Depression Musculoskeletal: Reports: Back Pain Cancer: Reports: None - Surgical History General Surgical History: Reports: Orthopedic (hx of broken wrist), Back Surgery (Back surgery X3 Hx of broken back), Unknown - Family History Family History: Reports: Unknown - Social History Smoking Status: Current every day smoker, Heavy tobacco smoker Hx Substance Use: No Alcohol Screening: None - Immunizations Tetanus Shot up to Date: No Physical Exam - Physical Exam Appearance: Well-appearing, No pain distress, Well-nourished Pain Distress: Moderate Eyes: ANGELES, EOMI, Conjunctiva clear ENT: Ears normal, Nose normal, Oropharynx normal Neck: Supple Respiratory: Airway patent, Breath sounds clear, Breath sounds equal, Respirations nonlabored Cardiovascular: RRR, Pulses normal, No rub, No murmur GI/: Soft, Nontender, No masses, Bowel sounds normal, No Organomegaly Musculoskeletal: Limited ROM Skin: Warm, Dry, Normal color Neurological: Sensation intact Psychiatric: Affect appropriate, Mood appropriate Interpretation - Radiology Interpretation Radiology Interpretation By: Radiologist Radiology Results: Positive Exam Interpreted: CT Scan Critical Care Note - Critical Care Note Total Time (mins): 0 Course - Course Orders, Labs, Meds: Orders Category Date Time Status Hydromorphone HCl [Dilaudid 1 mg/ml Syringe] MEDS 06/26/18 16:05 Discontinued 1 mg IM ONCE STA Ondansetron HCl/Pf [Zofran 4 mg/2 ml] MEDS 06/26/18 16:05 Discontinued 4 mg IM ONCE STA CT LUMBAR SPINE W/O CONTRAST Stat RADS 06/26/18 16:04 Completed Medications Discontinued Medications Generic Name Dose Route Start Last Admin Trade Name Freq PRN Reason Stop Dose Admin Hydromorphone HCl 1 mg 06/26/18 16:05 Dilaudid 1 Mg/Ml Syringe IM 06/26/18 16:06 ONCE STA Ondansetron HCl 4 mg 06/26/18 16:05 Zofran 4 Mg/2 Ml IM 06/26/18 16:06 ONCE STA Vital Signs: Temp Pulse Resp BP Pulse Ox 06/26/18 15:56 98.8 F 111 H 22 111/77 98 Departure - Departure Time of Disposition: 16:42 Disposition: HOME SELF-CARE Discharge Problem: Chronic low back pain Qualifiers: Back pain laterality: left Sciatica presence: unspecified whether sciatica present Qualified Code(s): M54.5 - Low back pain; G89.29 - Other chronic pain Instructions: Back Pain (ED) Condition: Fair Pt referred to PMD for follow-up: Yes IPMP verified?: No Additional Instructions: f/u with pcsp Allergies/Adverse Reactions: Allergies No Known Drug Allergies Adverse Reaction (Verified 06/26/18 16:04) Home Medications: Ambulatory Orders Gabapentin 300 mg PO TID 05/03/16 Budesonide/Formoterol Fumarate [Symbicort 160-4.5 Mcg Inhaler] 1 puff IH BID Atorvastatin Calcium 40 mg PO BEDTIME 06/26/18 Clopidogrel Bisulfate [Clopidogrel] 75 mg PO DAILY 06/26/18 Cyclobenzaprine HCl 5 mg PO BID 06/26/18 Duloxetine HCl [Cymbalta] 60 mg PO DAILY 06/26/18 Escitalopram Oxalate 10 mg PO DAILY 06/26/18 Metoprolol Succinate [Toprol Xl] 12.5 mg PO DAILY 06/26/18 Mirtazapine 30 mg pe PO BEDTIME 06/26/18 Ranitidine HCl 150 mg PO BID 06/26/18 Trazodone HCl 50 mg PO BEDTIME 06/26/18 Disposition Discussed With: Patient, Family
--- NOTE | 2018-06-26 16:39 | CT ---
EXAM: CT of the lumbar spine without contrast. HISTORY: Low back pain. No acute narrowing. COMPARISON: 05/03/2016 and 02/03/2018. TECHNIQUE: Contiguous axial images were obtained through the lumbar spine. Sagittal and coronal ref ormats reviewed. No contrast. FINDINGS: There are postoperative changes with posterior fusion L3, L4, L5 and S1. Pedicle screws a re seen at all levels. There is lucency around the S1 screws bilaterally which may is seen. No defi nite evidence of hardware failure. Interbody fusion graft material is seen. Bone graft material is noted. There is reversal of normal lordosis, centered at L2-3. There is persistent lucency in the i nferior plate of L1 which was seen dating back to 05/03/2016 and has appearance of a large Schmorl's node. There is loss vertebral height at L3 which is unchanged. T12-L1: Disc narrowing. Vacuum disc phenomenon. Facet hypertrophy. Mild right neural foramen narr owing. L1-L2: Disc narrowing. Facet hypertrophy. Bilateral neural foramen narrowing. L2-3: Disc narrowing. Facet hypertrophy. Broad-based disc bulge osteophyte complex. Bilateral jimena ral foramen narrowing. L3-4: Postoperative changes. No definite spinal canal narrowing. L4-5: Disc narrowing. Postoperative changes. No spinal canal or neural foramen. L5 S1: Postoperative changes. No dense spinal canal or neural foramen narrowing. IMPRESSION: 1. Extensive postoperative changes of the lumbar spine. 2. Lucency around the screws at S1 suggestive of loosening. No significant change. 3. Severe degenerative changes. Neural foramen narrowing at multiple levels as described above. 4. Stable lucency in the inferior plate of L1. No significant change dating back to 2015. Findings suggest a large Schmorl's node.
== END 2018-06-26 17:25 | disposition home or self-care (01) ==
LOC: ED 15:55
DX: M54.5 Low back pain (principal); G89.29 Other chronic pain; F17.210 Nicotine dependence, cigarettes, uncomplicated
CPT/HCPCS: 96372; 99283

== ENCOUNTER 2018-08-07 15:44 | Emergency (ER) ==
[2018-08-07 15:52] VITALS: BP 157/97; TEMP 99.5; BMI 17.1
--- NOTE | 2018-08-07 16:18 | ED.PDOC ---
General ED Provider: Dr. DONNIE QUIÑONES Chief Complaint: Headache Stated Complaint: aqpparent right fronto-temporal cluster headache.Gradual onset Pt out of Tylenol, Time Seen by Physician: 16:19 Mode of Arrival: Ambulance Information Source: Patient Exam Limitations: No limitations Primary Care Provider: GERRY BAÑUELOS Nursing and Triage Documentation Reviewed and Agree: Yes Does patient meet sepsis criteria?: No System Inflammatory Response Syndrome: Not Applicable Sepsis Protocol: For patient's 13 years and over: Temp is 96.8 and below OR 101 and greater Pulse >90 BPM Resp >20/minute Acutely Altered Mental Status Are patient's symptoms suggestive of a new infection, such as: -Pneumonia -Skin, Soft Tissue -Endocarditis -UTI -Bone, Joint Infection -Implantable Device -Acute Abdominal Infection -Wound Infection -Meningitis -Blood Stream Catheter Infection -Unknown Cardiovascular Complaint Exam - Hypertension Complaint/Exam Onset/Duration: cluster headache ongoing Symptoms Are: Still present Timing: Constant Reported B/P Prior to Arrival: 1157/97 Aggravating: Reports: Exertion Alleviating: Reports: Rest Associated Signs and Symptoms: Reports: Headache Related History: Reports: Other Related Surgical History: Reports: None Cardiac Risk Factors: Reports: Hypertension Recent Change in Medications: No A/V Nicking: No Papilledema Present: No JVD Present: No Carotid Bruit Present: No Femoral Pulses Bounding: No Differential Diagnoses: Endocrine Disorder, Hypertension, Hypertensive Urgency, Migraine Review of Systems - Review Of Systems Constitutional: Reports: No symptoms Eyes: Reports: No symptoms Ears, Nose, Mouth, Throat: Reports: No symptoms Respiratory: Reports: No symptoms Cardiac: Reports: No symptoms GI: Reports: No symptoms : Reports: No symptoms Musculoskeletal: Reports: No symptoms Skin: Reports: No symptoms Neurological: Reports: No symptoms Endocrine: Reports: No symptoms Hematologic/Lymphatic: Reports: No symptoms All Other Systems: Reviewed and Negative Past Medical History - Past Medical History Previously Healthy: No Endocrine: Reports: None Cardiovascular: Reports: Hypertension, CHF Respiratory: Reports: COPD Hematological: Reports: None Gastrointestinal: Reports: None Genitourinary: Reports: None Neuro/Psych: Reports: Migraine, Anxiety, Depression Musculoskeletal: Reports: Back Pain Cancer: Reports: None - Surgical History General Surgical History: Reports: Orthopedic (hx of broken wrist), Back Surgery (Back surgery X3 Hx of broken back), Unknown - Family History Family History: Reports: Unknown - Social History Smoking Status: Current every day smoker, Heavy tobacco smoker Hx Substance Use: No Alcohol Screening: None - Immunizations Tetanus Shot up to Date: Yes Physical Exam - Physical Exam Appearance: Ill-appearing, Cachectic Ill-appearing: Moderate Pain Distress: Mild Eyes: ANGELES ENT: Ears normal Neck: Supple Respiratory: Airway patent, Crackles GI/: Soft Musculoskeletal: Normal strength Skin: Warm Neurological: Cranial nerves intact, Alert, Oriented Psychiatric: Affect appropriate Re-Evaluation - Re-Evaluation Time of Re-Evaluation: 16:24 (r.hemiparesis old cva) Vital Signs Stable: Yes Appearance: NAD Lungs: Clear Skin: Warm and Dry Neuro: Alert and Oriented X3 CV: RRR Critical Care Note - Critical Care Note Total Time (mins): 0 Course - Course Orders, Labs, Meds: Orders Category Date Time Status IV [ED IV/MEDIPORT/POWERPORT] .ONCE EMERGENCY 08/07/18 16:25 Active 0.9 % Sodium Chloride [Saline Flush] MEDS 08/07/18 16:25 Ordered 1 syr IVF PRN PRN Ketorolac Tromethamine [Toradol] MEDS 08/07/18 16:28 Discontinued 30 mg IVP ONCE STA Ondansetron HCl/Pf [Zofran 4 mg/2 ml] MEDS 08/07/18 16:29 Discontinued 4 mg IVP ONCE STA Sodium Chloride 0.9% [Sodium Chloride] 500 ml MEDS 08/07/18 16:26 Active IV BOLUS Medications Generic Name Dose Route Start Last Admin Trade Name Freq PRN Reason Stop Dose Admin Sodium Chloride 500 mls @ 500 mls/hr 08/07/18 16:26 08/07/18 16:49 Sodium Chloride IV 08/07/18 17:25 500 mls/hr BOLUS STA Administration Sodium Chloride 1 syr 08/07/18 16:25 Saline Flush IVF PRN PRN To flush IV Discontinued Medications Generic Name Dose Route Start Last Admin Trade Name Freq PRN Reason Stop Dose Admin Ketorolac Tromethamine 30 mg 08/07/18 16:28 08/07/18 16:48 Toradol IVP 08/07/18 16:29 30 mg ONCE STA Administration Ondansetron HCl 4 mg 08/07/18 16:29 08/07/18 16:48 Zofran 4 Mg/2 Ml IVP 08/07/18 16:30 4 mg ONCE STA Administration Vital Signs: Temp Pulse Resp BP Pulse Ox 08/07/18 15:46 99.5 F 105 H 16 157/97 H 98 MARK Risk Score MARK Risk Score: Risk Score Odds of by 30D 0 0.1 (0.1-0.2) 1 0.3 (0.2-0.3) 2 0.4 (0.3-0.5) 3 0.7 (0.6-0.9) 4 1.2 (1.0-1.5) 5 2.2 (1.9-2.6) 6 3.0 (2.5-3.6) 7 4.8 (3.8-6.1) Departure - Departure Time of Disposition: 16:53 Disposition: HOME SELF-CARE Discharge Problem: Migraine Instructions: Cluster Headache (ED) Condition: Good Pt referred to PMD for follow-up: No (PCP of choice for follo uw or rv ER.) IPMP verified?: No Allergies/Adverse Reactions: Allergies No Known Drug Allergies Adverse Reaction (Verified 06/26/18 16:04) Home Medications: Ambulatory Orders Gabapentin 300 mg PO TID 05/03/16 Budesonide/Formoterol Fumarate [Symbicort 160-4.5 Mcg Inhaler] 1 puff IH BID Atorvastatin Calcium 40 mg PO BEDTIME 06/26/18 Clopidogrel Bisulfate [Clopidogrel] 75 mg PO DAILY 06/26/18 Cyclobenzaprine HCl 5 mg PO BID 06/26/18 Duloxetine HCl [Cymbalta] 60 mg PO DAILY 06/26/18 Escitalopram Oxalate 10 mg PO DAILY 06/26/18 Metoprolol Succinate [Toprol Xl] 12.5 mg PO DAILY 06/26/18 Mirtazapine 30 mg pe PO BEDTIME 06/26/18 Ranitidine HCl 150 mg PO BID 06/26/18 Trazodone HCl 50 mg PO BEDTIME 06/26/18 Disposition Discussed With: Patient
[2018-08-07] MEDS ORDERED: SODIUM CHLORIDE 500 ML IV STA (16:26)
[2018-08-07] MEDS ORDERED: TORADOL IVP STA (16:28)
[2018-08-07] MEDS ORDERED: ZOFRAN 4 MG/2 ML IVP STA (16:29)
== END 2018-08-07 17:47 | disposition home or self-care (01) ==
LOC: ED 15:44
DX: G43.909 Migraine, unspecified, not intractable, without status migrainosus (principal); I10 Essential (primary) hypertension; F17.210 Nicotine dependence, cigarettes, uncomplicated; Z86.73 Personal history of transient ischemic attack (TIA), and cerebral infarction without residual deficits; Z79.899 Other long term (current) drug therapy; M54.9 Dorsalgia, unspecified; G89.29 Other chronic pain
CPT/HCPCS: 96361; 96374; 96375; 99283

== ENCOUNTER 2018-08-08 09:28 | Outpatient (CLI) | payer OTHER ==
[2012-11-08 21:51] VITALS: TEMP 99.2
[2018-08-07 15:52] VITALS: BMI 17.1
== END 2018-08-08 09:29 | disposition home or self-care (01) ==
LOC: RHC-LAB 09:28 → FCC-LAB 09:29
PROVIDERS: ATTEND Family Medicine
DX: E53.9 Vitamin B deficiency, unspecified (principal); E55.9 Vitamin D deficiency, unspecified; E78.5 Hyperlipidemia, unspecified; I10 Essential (primary) hypertension; I25.10 Atherosclerotic heart disease of native coronary artery without angina pectoris; M54.42 Lumbago with sciatica, left side; K21.9 Gastro-esophageal reflux disease without esophagitis; Z79.891 Long term (current) use of opiate analgesic; Z86.73 Personal history of transient ischemic attack (TIA), and cerebral infarction without residual deficits
CPT/HCPCS: 36415; 80053; 80061; 82306; 82607; 85025

== ENCOUNTER 2018-08-14 18:41 | Emergency (ER) | payer OTHER ==
[2018-08-14 18:44] VITALS: BP 119/78; TEMP 98.5; BMI 19.1
[2018-08-14] MEDS ORDERED: IMITREX SUBCUT STA (19:08)
[2018-08-14] MEDS ORDERED: COMPAZINE IM STA (19:09)
--- NOTE | 2018-08-14 19:33 | CT ---
EXAM: CT brain without contrast HISTORY: Headache TECHNIQUE: CT of the brain without intravenous contrast FINDINGS: There is no acute hemorrhage midline shift or mass effect. No hydrocephalus or abnormal e xtra-axial fluid collection. Generalized involutional atrophy, moderate. Chronic microvascular roland ges of the white matter tracts, moderate. 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 No acute large vessel territorial infarct is seen. The bony cranium appears normal. The visualize d paranasal sinuses are clear. Soft tissues without significant abnormality. IMPRESSION: 1. Chronic changes as described. No acute intracranial abnormality is seen. 2. Interval left internal capsule and globus pallidus small vessel lacunar infarct compared with 04/2016.
--- NOTE | 2018-08-14 19:47 | ED.PDOC ---
General ED Provider: Dr. STACY CARLOS Chief Complaint: Headache Stated Complaint: Patient is a 63 year old male who comes to the ER with complaints of Headache that started at noon today. States that it feels like prior mirgranes. Time Seen by Physician: 19:45 Mode of Arrival: Wheelchair Information Source: Patient Exam Limitations: No limitations Primary Care Provider: NASEEM SOLARES Nursing and Triage Documentation Reviewed and Agree: Yes Does patient meet sepsis criteria?: No System Inflammatory Response Syndrome: Not Applicable Sepsis Protocol: For patient's 13 years and over: Temp is 96.8 and below OR 101 and greater Pulse >90 BPM Resp >20/minute Acutely Altered Mental Status Are patient's symptoms suggestive of a new infection, such as: -Pneumonia -Skin, Soft Tissue -Endocarditis -UTI -Bone, Joint Infection -Implantable Device -Acute Abdominal Infection -Wound Infection -Meningitis -Blood Stream Catheter Infection -Unknown Review of Systems - Review Of Systems Constitutional: Reports: No symptoms Eyes: Reports: Photophobia Ears, Nose, Mouth, Throat: Reports: No symptoms Respiratory: Reports: No symptoms Cardiac: Reports: No symptoms GI: Reports: Nausea : Reports: No symptoms Musculoskeletal: Reports: No symptoms Skin: Reports: No symptoms Neurological: Reports: Anxiety, Headache Endocrine: Reports: No symptoms Hematologic/Lymphatic: Reports: No symptoms All Other Systems: Reviewed and Negative Past Medical History - Past Medical History Previously Healthy: No Endocrine: Reports: None Cardiovascular: Reports: Hypertension, CHF Respiratory: Reports: COPD Hematological: Reports: None Gastrointestinal: Reports: None Genitourinary: Reports: None Neuro/Psych: Reports: Migraine, Anxiety, Depression Musculoskeletal: Reports: Back Pain Cancer: Reports: None - Surgical History General Surgical History: Reports: Orthopedic (hx of broken wrist), Back Surgery (Back surgery X3 Hx of broken back), Unknown - Family History Family History: Reports: Unknown - Social History Smoking Status: Current every day smoker, Heavy tobacco smoker Hx Substance Use: No Alcohol Screening: None - Immunizations Tetanus Shot up to Date: Yes Physical Exam - Physical Exam Appearance: Ill-appearing Ill-appearing: Moderate Pain Distress: Severe Eyes: ANGELES, EOMI, Conjunctiva clear ENT: Ears normal, Nose normal, Oropharynx normal Respiratory: Airway patent, Breath sounds clear, Breath sounds equal, Respirations nonlabored Cardiovascular: RRR, Pulses normal, No rub, No murmur GI/: Soft, Nontender, No masses, Bowel sounds normal, No Organomegaly Musculoskeletal: Normal strength, ROM intact, No edema, No calf tenderness Skin: Warm, Dry, Normal color Neurological: Sensation intact, Motor intact, Reflexes intact, Cranial nerves intact, Alert, Oriented Psychiatric: Affect appropriate, Mood appropriate Re-Evaluation - Re-Evaluation Status: Improved Critical Care Note - Critical Care Note Total Time (mins): 0 Course - Course Orders, Labs, Meds: Orders Category Date Time Status Ketorolac Tromethamine [Toradol] MEDS 08/14/18 20:39 Discontinued 60 mg IM ONCE STA Nalbuphine HCl [Nubain] MEDS 08/14/18 20:01 Discontinued 10 mg IM ONCE STA Prochlorperazine Edisylate [Compazine] MEDS 08/14/18 19:09 Discontinued 10 mg IM ONCE STA Sumatriptan Succinate [Imitrex] MEDS 08/14/18 19:08 Discontinued 6 mg SUBCUT ONCE STA CT HEAD W/O CONTRAST Stat RADS 08/14/18 19:09 Completed Medications Discontinued Medications Generic Name Dose Route Start Last Admin Trade Name Freq PRN Reason Stop Dose Admin Ketorolac Tromethamine 60 mg 08/14/18 20:39 08/14/18 20:59 Toradol IM 08/14/18 20:40 60 mg ONCE STA Administration Nalbuphine HCl 10 mg 08/14/18 20:01 08/14/18 20:14 Nubain IM 08/14/18 20:02 10 mg ONCE STA Administration Prochlorperazine Edisylate 10 mg 08/14/18 19:09 08/14/18 19:14 Compazine IM 08/14/18 19:10 10 mg ONCE STA Administration Sumatriptan Succinate 6 mg 08/14/18 19:08 08/14/18 19:14 Imitrex SUBCUT 08/14/18 19:09 6 mg ONCE STA Administration Vital Signs: Temp Pulse Resp BP Pulse Ox 08/14/18 18:41 98.5 F 99 H 20 119/78 97 Departure - Departure Time of Disposition: 21:45 Disposition: HOME SELF-CARE Discharge Problem: Cluster headache syndrome, not intractable Qualifiers: Headache chronicity pattern: chronic headache Qualified Code(s): G44.029 - Chronic cluster headache, not intractable Instructions: Cluster Headache (ED) Condition: Fair Pt referred to PMD for follow-up: Yes IPMP verified?: No Additional Instructions: Follow up with PCP in 3 days Prescriptions: Butalb/Acetaminophen/Caffeine [Fioricet 50-300-40 mg Capsule] 1 each PO TID PRN #14 capsule PRN Reason: Headaches Allergies/Adverse Reactions: Allergies No Known Drug Allergies Adverse Reaction (Verified 08/15/18 07:49) Home Medications: Ambulatory Orders Gabapentin 300 mg PO TID 05/03/16 Budesonide/Formoterol Fumarate [Symbicort 160-4.5 Mcg Inhaler] 1 puff IH BID Clopidogrel Bisulfate [Clopidogrel] 75 mg PO DAILY 06/26/18 Cyclobenzaprine HCl 5 mg PO BID 06/26/18 Duloxetine HCl [Cymbalta] 60 mg PO DAILY 06/26/18 Escitalopram Oxalate 10 mg PO DAILY 06/26/18 Mirtazapine 30 mg pe PO BEDTIME 06/26/18 Metoprolol Succinate 25 mg PO DAILY 08/08/18 Butalb/Acetaminophen/Caffeine [Fioricet 50-300-40 mg Capsule] 1 each PO TID PRN #14 capsule 08/14/18 Disposition Discussed With: Patient, Family
[2018-08-14] MEDS ORDERED: NUBAIN IM STA (20:01)
[2018-08-14] MEDS ORDERED: TORADOL IM STA (20:39)
== END 2018-08-14 21:58 | disposition home or self-care (01) ==
LOC: ED 18:41
DX: R51 Headache (principal); F41.9 Anxiety disorder, unspecified; H53.149 Visual discomfort, unspecified; R11.0 Nausea; Z72.0 Tobacco use; G44.029 Chronic cluster headache, not intractable
CPT/HCPCS: 96372; 99283

== ENCOUNTER 2018-08-15 06:47 | Outpatient (CLI) | payer OTHER ==
[2012-11-08 21:51] VITALS: TEMP 99.2
[2018-08-14 18:44] VITALS: BMI 19.1
--- NOTE | 2018-08-15 08:45 | US ---
EXAM: Right upper quadrant abdominal ultrasound. History: Elevated liver function tests. Comparison: CT abdomen pelvis 05/03/2016 Technique: Multiple sonographic images through the abdomen were obtained. Color duplex Doppler was used to interrogate vascular flow. Findings: The liver is not echogenic compared to the adjacent right renal cortex. There are prominent periport al echoes within the liver. No abdominal ascites. No shadowing gallstones. Gallbladder wall is not thickened. Common bile duct measures 0.3 cm in caliber. Visualized pancreas demonstrates no gross abnormality. No focal liver lesions identified sonographically. There is antegrade flow within the main portal vein. Limited visualization of the right kidney demonstrates no evidence for hydronephro sis. Impression: Prominent periportal echoes within the liver could be within normal limits or indicate h epatitis.
== END 2018-08-15 06:48 | disposition home or self-care (01) ==
LOC: RAD 06:47
PROVIDERS: ATTEND Family Medicine
DX: R74.0 Nonspecific elevation of levels of transaminase and lactic acid dehydrogenase [LDH] (principal)

== ENCOUNTER 2018-08-15 07:44 | Emergency (ER) | payer OTHER ==
[2018-08-15 07:48] VITALS: BP 126/79; TEMP 97; BMI 18.8
[2018-08-15] MEDS ORDERED: TORADOL IM STA (08:02)
--- NOTE | 2018-08-15 08:02 | ED.PDOC ---
General ED Provider: Dr. DERRICK LOPEZ MD Chief Complaint: Headache Stated Complaint: headache and nausea Time Seen by Physician: 07:50 Mode of Arrival: Wheelchair Information Source: Patient Exam Limitations: No limitations Primary Care Provider: NASEEM SOLARES Nursing and Triage Documentation Reviewed and Agree: Yes Does patient meet sepsis criteria?: No If yes, has appropriate treatment been initiated?: Yes System Inflammatory Response Syndrome: Not Applicable Sepsis Protocol: For patient's 13 years and over: Temp is 96.8 and below OR 101 and greater Pulse >90 BPM Resp >20/minute Acutely Altered Mental Status Are patient's symptoms suggestive of a new infection, such as: -Pneumonia -Skin, Soft Tissue -Endocarditis -UTI -Bone, Joint Infection -Implantable Device -Acute Abdominal Infection -Wound Infection -Meningitis -Blood Stream Catheter Infection -Unknown Review of Systems - Review Of Systems Constitutional: Reports: Other (nausea) Eyes: Reports: No symptoms Ears, Nose, Mouth, Throat: Reports: No symptoms Respiratory: Reports: No symptoms Cardiac: Reports: No symptoms GI: Reports: No symptoms : Reports: No symptoms Musculoskeletal: Reports: No symptoms Skin: Reports: No symptoms Endocrine: Reports: No symptoms Hematologic/Lymphatic: Reports: No symptoms All Other Systems: Reviewed and Negative (histoiry of cluster SEGOVIA's) Past Medical History - Past Medical History Previously Healthy: No Endocrine: Reports: None Cardiovascular: Reports: Hypertension, CHF Respiratory: Reports: COPD Hematological: Reports: None Gastrointestinal: Reports: None Genitourinary: Reports: None Neuro/Psych: Reports: Migraine, Anxiety, Depression Musculoskeletal: Reports: Back Pain Cancer: Reports: None - Surgical History General Surgical History: Reports: Orthopedic (hx of broken wrist), Back Surgery (Back surgery X3 Hx of broken back), Unknown - Family History Family History: Reports: Unknown - Social History Smoking Status: Current every day smoker, Heavy tobacco smoker Hx Substance Use: No Alcohol Screening: None Physical Exam - Physical Exam Appearance: Thin Ill-appearing: None Pain Distress: Mild Eyes: ANGELES, EOMI, Conjunctiva clear ENT: Ears normal Neck: Supple Respiratory: Airway patent, Breath sounds clear, Breath sounds equal, Respirations nonlabored Cardiovascular: RRR, Pulses normal, No rub, No murmur GI/: Soft, Nontender, No masses, Bowel sounds normal, No Organomegaly Musculoskeletal: Normal strength, ROM intact, No edema, No calf tenderness Skin: Warm, Dry, Normal color Neurological: Sensation intact (points to right temp-parietal area), Motor intact, Reflexes intact, Cranial nerves intact, Alert, Oriented Critical Care Note - Critical Care Note Total Time (mins): 0 Course - Course Vital Signs: Temp Pulse Resp BP Pulse Ox 08/15/18 07:46 97.0 F L 83 20 126/79 95 Departure - Departure Time of Disposition: 08:25 Disposition: HOME SELF-CARE Discharge Problem: Cluster headache Instructions: Cluster Headache (ED) Condition: Good Pt referred to PMD for follow-up: Yes IPMP verified?: No Allergies/Adverse Reactions: Allergies No Known Drug Allergies Adverse Reaction (Verified 08/15/18 07:49) Home Medications: Ambulatory Orders Gabapentin 300 mg PO TID 05/03/16 Budesonide/Formoterol Fumarate [Symbicort 160-4.5 Mcg Inhaler] 1 puff IH BID Clopidogrel Bisulfate [Clopidogrel] 75 mg PO DAILY 06/26/18 Cyclobenzaprine HCl 5 mg PO BID 06/26/18 Duloxetine HCl [Cymbalta] 60 mg PO DAILY 06/26/18 Escitalopram Oxalate 10 mg PO DAILY 06/26/18 Mirtazapine 30 mg pe PO BEDTIME 06/26/18 Metoprolol Succinate 25 mg PO DAILY 08/08/18 Butalb/Acetaminophen/Caffeine [Fioricet 50-300-40 mg Capsule] 1 each PO TID PRN #14 capsule 08/14/18 Transfer Form Completed: No Disposition Discussed With: Patient
[2018-08-15] MEDS ORDERED: ZOFRAN 4 MG/2 ML IM STA (08:03)
== END 2018-08-15 08:35 | disposition home or self-care (01) ==
LOC: ED 07:44
DX: R51 Headache (principal); R11.0 Nausea; G44.009 Cluster headache syndrome, unspecified, not intractable; R74.0 Nonspecific elevation of levels of transaminase and lactic acid dehydrogenase [LDH]
CPT/HCPCS: 96372; 99283

== ENCOUNTER 2018-08-16 22:00 | Outpatient (CLI) | payer OTHER ==
[2012-11-08 21:51] VITALS: TEMP 99.2
[2018-08-15 07:48] VITALS: BMI 18.8
== END 2018-08-16 22:15 | disposition short-term general hospital (02) ==
LOC: AMBL 22:00
PROVIDERS: ATTEND Internal Medicine Geriatric Medicine
DX: R45.851 Suicidal ideations (principal)

== ENCOUNTER 2018-11-09 13:55 | Emergency (ER) ==
[2018-11-09 14:00] VITALS: BP 136/84; TEMP 99; BMI 17.5
== END 2018-11-09 14:40 | disposition left against medical advice (07) ==
LOC: ED 13:55
DX: R51 Headache (principal); F17.210 Nicotine dependence, cigarettes, uncomplicated

== ENCOUNTER 2019-01-28 19:28 | Outpatient (CLI) ==
[2012-11-08 21:51] VITALS: TEMP 99.2
== END 2019-01-28 19:44 | disposition short-term general hospital (02) ==
LOC: AMBL 19:28
PROVIDERS: ATTEND Emergency Medicine
DX: G43.909 Migraine, unspecified, not intractable, without status migrainosus (principal)

== ENCOUNTER 2019-01-29 15:40 | Outpatient (CLI) ==
[2012-11-08 21:51] VITALS: TEMP 99.2
== END 2019-01-29 15:56 | disposition short-term general hospital (02) ==
LOC: AMBL 15:40
PROVIDERS: ATTEND Family Medicine
DX: G43.909 Migraine, unspecified, not intractable, without status migrainosus (principal)